=== PATIENT | female | born 1960 | race Caucasian/White ===

== ENCOUNTER 2021-08-04 10:48 | Outpatient (CLI) | payer MEDICARE, OTHER, SELFPAY | END 2021-08-04 10:49 | disposition home or self-care (01) | LOC: ANHAUDIO 10:53 | PROVIDERS: Visit Provider Nurse Practitioner Family | DX: H90.3 Sensorineural hearing loss, bilateral (principal) | CPT/HCPCS: 92557; 92567 ==